=== PATIENT | female | born 1945 | race Caucasian/White ===

== ENCOUNTER 2017-09-28 06:58 | Day surgery (SDC) | payer MEDICARE, MEDICAID ==
[2017-09-28] MEDS ORDERED: Lactated Ringers 1,000 ML IV SCH (07:15)
[2017-09-28] MEDS ORDERED: Propofol 200 MG/20 ML SDV IV ONE (08:30)
--- NOTE | 2017-09-28 09:12 | PCM.OPNOTE ---
- General Post-Op/Procedure Note Date of Surgery/Procedure: 09/28/17 Operative Procedure(s): egd with bx. c scope Findings: gastric bypass status esophagitis normal colon Pre Op Diagnosis: epigastric abd pain. hx of hematochezia, gastric bypass Post-Op Diagnosis: gastric bypass status. esophagitis. normal colon Anesthesia Technique: MAC Primary Surgeon: Manjit Hernandez Anesthesia Provider: Pepe Helm Pathology: distal esophagus Complications: None Condition: Good Free Text/Narrative:: see dictation
--- NOTE | 2017-09-28 09:48 | OR ---
DATE OF OPERATION: 09/28/2017 SURGEON: Manjit Hernandez MD PROCEDURES PERFORMED: EGD with cold forceps biopsy and colonoscopy. INDICATIONS FOR PROCEDURE: This is a 72-year-old white female who is referred with a history of some epigastric abdominal pain. In addition, she has noted some hematochezia in the past and also notes a history of gastric bypass. She was offered and accepted upper and lower endoscopies. DESCRIPTION OF PROCEDURE: After an excellent IV sedation was administered, the bite block was inserted. The flexible endoscope was passed without difficulty down the patient's esophagus, into the stomach remnant. The scope was passed through the pouch, into the Real-en-Y limb. Efferent and afferent limbs were inspected, and the following findings were noted. Small intestine, unremarkable. Gastric pouch, unremarkable. GE junction measured at approximately 37 cm. Some mild irritation was possibly noted along the GE junction and biopsies were taken. The remainder of the esophageal exam was unremarkable. Attention was then turned to the colon. Digital rectal exam was performed. No marked abnormality was noted. The flexible colonoscope was inserted and advanced without difficulty to the cecum. The prep was excellent. The following findings were noted. Ascending colon, unremarkable. Transverse colon, unremarkable. Descending colon, unremarkable. Sigmoid and rectum, unremarkable. On retroflexing the scope, there was no evidence of internal hemorrhoids or fissure to suggest a source for the bleeding. The scope was withdrawn. The patient tolerated the procedure well and was taken to the recovery room in a good condition. Results will be sent to her via letter. /[id number] /MODL
== END 2017-09-28 10:21 | disposition home or self-care (01) ==
LOC: FB.SDS 06:58
PROVIDERS: ATTEND Surgery
DX: K92.1 Melena (principal); K20.9 Esophagitis, unspecified; K21.9 Gastro-esophageal reflux disease without esophagitis; E07.9 Disorder of thyroid, unspecified; F32.9 Major depressive disorder, single episode, unspecified; Z98.84 Bariatric surgery status; Z79.82 Long term (current) use of aspirin; Z79.899 Other long term (current) drug therapy; Z87.891 Personal history of nicotine dependence
CPT/HCPCS: 00812; 43239; 45378; 88305; 88313; J2704; J7120